=== PATIENT | female | born 1970 | race Caucasian/White ===

== ENCOUNTER 2017-05-27 10:44 | Emergency (ER) | payer OTHER ==
[~2017-05-27] VITALS: Ht 180.3 cm; Wt 72.6 kg
[2017-05-27] MEDS ORDERED: NORFLEX100MG PO (14:42)
[2017-05-27] MEDS ORDERED: KETO10TA2 PO (14:42)
[2017-05-27] MEDS ORDERED: MEDROLPACK PO (14:42)
== END 2017-05-27 15:00 | disposition home or self-care (01) ==
LOC: ER 10:44
DX: M54.5 Low back pain (principal)